=== PATIENT | female | born 1965 | race African-American/Black ===

== ENCOUNTER 2018-12-17 19:32 | Emergency (ER) | payer MEDICAID, OTHER ==
[~2018-12-17] VITALS: Ht 152.4 cm; Wt 75.0 kg
[~2018-12-17 19:32] MED LIST: ASPI-986; TRAMADOL
[2018-12-17] MEDS ORDERED: SODIUM CHLORIDE 0.9% 1,000 ML IV ONE (20:04)
[2018-12-17] MEDS ORDERED: DIPHENHYDRAMINE 50MG/ML VIAL IV ONE (20:15)
[2018-12-17] MEDS ORDERED: FAMOTIDINE 20MG/2ML VIAL IV ONE (20:15)
[2018-12-17] MEDS ORDERED: METHYLPREDNISOLONE SOD SUCC 125 MG/2 ML VIAL IV ONE (20:15)
[2018-12-17 20:50] LABS: BASOPHILS % 0.2 % (0.0-2.0); CHLORIDE 105 mEq/L (98-107); EOSINOPHILS % 0.4 % (0.0-5.0); HEMATOCRIT. 32.5 % (36.0-48.0); HEMOGLOBIN. 10.5 g/dL (12.0-16.0); LYMPHOCYTES % 40.1 % (20.0-50.0); MEAN CORPUSCULAR HEMOGLOBIN 26.7 pg (28.0-32.0); MEAN CORPUSCULAR VOLUME 82.7 fL (81.0-99.0); MEAN PLATELET VOLUME 8.8 fl (7.4-10.4); MONOCYTES % 4.3 % (2.0-8.0); PLATELET 182 x1000/uL (130-400); RED BLOOD CELL COUNT 3.93 mill/uL (4.2-5.4); RED CELL DISTRIBUTION WIDTH 15.2 % (11.6-14.6)
[2018-12-17 20:55] LABS: CLARITY URINE CLEAR (CLEAR); COLOR URINE YELLOW (YELLOW); KETONES URINE NEGATIVE (NEGATIVE); LEUKOCYTE ESTERASE URINE NEGATIVE (NEGATIVE); NITRITE URINE NEGATIVE (NEGATIVE); OCCULT BLOOD URINE TRACE (NEGATIVE); PROTEIN URINE 2+ (NEGATIVE); SPECIFIC GRAVITY URINE 1.022 (1.005-1.030); UROBILINOGEN URINE 0.2 E.U./dL (0.2-1.0)
[2018-12-17 23:31] VITALS: BP 149/89
== END 2018-12-17 23:34 | disposition home or self-care (01) ==
LOC: ER 19:40
DX: T78.3XXA Angioneurotic edema, initial encounter (principal); I10 Essential (primary) hypertension; X58.XXXA Exposure to other specified factors, initial encounter; Z90.89 Acquired absence of other organs; Z79.82 Long term (current) use of aspirin
CPT/HCPCS: 36415; 80053; 81003; 81025; 85025; 93005; 96374; 96375; 99284; J1200; J2930; J3490; J7030

== ENCOUNTER 2020-02-05 15:02 | Emergency (ER) | payer MEDICAID ==
[~2020-02-05] VITALS: Ht 152.4 cm; Wt 66.0 kg
[~2020-02-05 15:02] MED LIST changes: +AMLO10TA80 PO; -ASPI-986; +FOLI0.8C PO; +HYDR200T80 PO; +METH2.5T PO; +PRED5TAB48 PO; -TRAMADOL
[2020-02-05] MEDS ORDERED: MORPHINE SULFATE 4 MG/ML CPJ (NOT FOR IM USE) IV STA (15:37)
[2020-02-05] MEDS ORDERED: ONDANSETRON HCL 4MG/2ML INJ IV STA (15:37)
[2020-02-05] MEDS ORDERED: NITROGLYCERIN OINT 1GM/INCH UDPKT TD ONE (15:45)
[2020-02-05] MEDS ORDERED: ASPIRIN 81MG TABLET PO ONE (15:45)
[2020-02-05] MEDS ORDERED: SODIUM CHLORIDE 0.9% 1,000 ML IV ONE ×2 (16:08→18:39)
[2020-02-05 16:19] LABS: BASOPHILS % 0.4 % (0.0-2.0); HEMATOCRIT. 27.6 % (36.0-48.0); HEMOGLOBIN. 9.3 g/dL (12.0-16.0); LYMPHOCYTES % 20.3 % (20.0-50.0); MEAN CORPUSCULAR HEMOGLOBIN 27.2 pg (28.0-32.0); MEAN CORPUSCULAR VOLUME 80.5 fL (81.0-99.0); MEAN PLATELET VOLUME 8.5 fl (7.4-10.4); MONOCYTES % 8.8 % (2.0-8.0); NEUTROPHILS % 70.5 % (40.0-76.0); PLATELET 323 x1000/uL (130-400); RED BLOOD CELL COUNT 3.44 mill/uL (4.2-5.4)
[2020-02-05 16:24] LABS: CHLORIDE 104 mEq/L (98-107)
[2020-02-05 16:28] LABS: ETHANOL BLOOD < 10 mg/dL
[2020-02-05] MEDS ORDERED: IOHEXOL-350 100 ML BOTTLE ONE (19:48)
[2020-02-06] MEDS ORDERED: MORPHINE SULFATE 2 MG/ML CPJ (NOT FOR IM USE) IV PRN (00:15)
[2020-02-06] MEDS ORDERED: IPRATROPIUM/ALBUTEROL 0.5-3(2.5)MG/3ML NEB HHN PRN (00:15)
[2020-02-06] MEDS ORDERED: ENOXAPARIN 40MG/0.4ML SYR SUBCUT SCH (00:15)
[2020-02-06] MEDS ORDERED: CLONIDINE 0.1MG TABLET PO PRN (00:15)
[2020-02-06] MEDS ORDERED: HYDROCODONE/ACETAMINOPHEN 10/325MG TABLET PO PRN (00:15)
[2020-02-06] MEDS ORDERED: MAGNESIUM/ALUMINUM HYDROXIDE/SIMETHICONE 30ML UDC PO PRN (00:15)
[2020-02-06] MEDS ORDERED: ONDANSETRON HCL 4MG/2ML INJ IV PRN (00:15)
[2020-02-06] MEDS ORDERED: GUAIFENESIN 200MG/10ML SUGAR FREE UDC PO PRN (00:15)
[2020-02-06] MEDS ORDERED: LORAZEPAM 2MG/ML CPJ IV PRN (00:15)
[2020-02-06] MEDS ORDERED: NA PHOS,M-B/NA PHOS,DI-BA ENEMA 118ML PR PRN (00:15)
[2020-02-06] MEDS ORDERED: DOCUSATE SODIUM 100MG CAPSULE PO PRN (00:15)
[2020-02-06] MEDS ORDERED: GABAPENTIN 100MG CAPSULE PO NR (00:30)
[2020-02-06] MEDS ORDERED: PREDNISONE 5MG TABLET PO SCH ×2 (00:45→09:00)
[2020-02-06] MEDS: ACETAMINOPHEN 325MG TABLET PO PRN ×2 (03:10→06:59)
[2020-02-06 05:02] LABS: CHLORIDE 107 mEq/L (98-107)
[2020-02-06] MEDS ORDERED: ASPIRIN 81MG EC TABLET PO SCH (09:00)
[2020-02-06 09:39] VITALS: BP 92/60
[2020-02-06] MEDS ORDERED: GABAPENTIN 100MG CAPSULE PO SCH (10:00)
== END 2020-02-06 10:02 | disposition left against medical advice (07) ==
LOC: ER 15:02 → EDBEDREQSVC 17:53 → EDBEDREQTM 17:53 → EDBEDREQ 17:53 → CANBEDREQ 02-06 10:01 → ER 02-06 10:02
DX: R07.89 Other chest pain (principal); E86.0 Dehydration; D64.9 Anemia, unspecified; R00.0 Tachycardia, unspecified; K21.9 Gastro-esophageal reflux disease without esophagitis; I10 Essential (primary) hypertension; M32.9 Systemic lupus erythematosus, unspecified; G61.81 Chronic inflammatory demyelinating polyneuritis; Z98.51 Tubal ligation status
CPT/HCPCS: 36415; 71045; 71275; 80048; 80053; 80320; 83690; 83880; 84443; 84484; 85025; 85379; 93005; 93970; 96374; 96375; 99291; J2270; J2405; J7030; J7512; Q9967; Z7610; G0480

== ENCOUNTER 2020-06-25 11:19 | Inpatient (IN) | payer MEDICAID ==
[~2020-06-25] VITALS: Ht 152.4 cm; Wt 49.4 kg
[2020-06-25] MEDS ORDERED: SODIUM CHLORIDE 0.9% 1,000 ML IV ONE (11:55)
[2020-06-25 12:20] LABS: BASOPHILS % 0.9 % (0.0-2.0); EOSINOPHILS % 0.2 % (0.0-5.0); HEMATOCRIT. 24.3 % (36.0-48.0); HEMOGLOBIN. 7.9 g/dL (12.0-16.0); LYMPHOCYTES % 37.9 % (20.0-50.0); MEAN CORPUSCULAR HEMOGLOBIN 26.9 pg (28.0-32.0); MEAN CORPUSCULAR VOLUME 82.9 fL (81.0-99.0); MONOCYTES % 11.9 % (2.0-8.0); NEUTROPHILS % 49.1 % (40.0-76.0); RED BLOOD CELL COUNT 2.93 mill/uL (4.2-5.4); RED CELL DISTRIBUTION WIDTH 20.1 % (11.6-14.6)
[2020-06-25 12:24] LABS: CHLORIDE 106 mEq/L (98-107)
[2020-06-25] MEDS ORDERED: AZITHROMYCIN 500 MG in DEXT 5% WATER 250 ML IV ONE (13:30)
[2020-06-25] MEDS ORDERED: PANTOPRAZOLE SODIUM 40 MG/VIAL IV ONE (13:30)
[2020-06-25] MEDS ORDERED: CEFTRIAXONE 1 G PREMIX 50 ML IV ONE (13:30)
[2020-06-25 13:43] LABS: INR 0.9; PROTHROMBIN TIME 9.9 sec (9.6-11.0)
[2020-06-25] MEDS ORDERED: HYDRALAZINE 20MG/ML VIAL IV PRN (16:45)
[2020-06-25] MEDS ORDERED: SODIUM CHLORIDE 0.9% 1,000 ML IV SCH (18:01)
[2020-06-25] MEDS ORDERED: IPRATROPIUM/ALBUTEROL 0.5-3(2.5)MG/3ML NEB HHN PRN (18:15)
[2020-06-25] MEDS ORDERED: HYDROCODONE/ACETAMINOPHEN 5/325MG TABLET PO PRN (18:15)
[2020-06-25] MEDS ORDERED: LORAZEPAM 0.5MG TABLET PO PRN (18:15)
[2020-06-25] MEDS ORDERED: CLONIDINE 0.1MG TABLET PO PRN (18:15)
[2020-06-25] MEDS ORDERED: ONDANSETRON HCL 4MG/2ML INJ IV PRN (18:15)
[2020-06-25] MEDS ORDERED: DOCUSATE SODIUM 100MG CAPSULE PO PRN (18:15)
[2020-06-25] MEDS ORDERED: ACETAMINOPHEN 325MG TABLET PO PRN ×2 (18:15)
[2020-06-25 21:30] VITALS: BP 163/102
[2020-06-26] VITALS: BP_SYST 148; BP_SYST 163; BP_DIAS 102; BP_DIAS 89
[2020-06-26] MEDS ORDERED: THIA50TA10 PO (00:02)
[2020-06-26] MEDS ORDERED: CHOL100034 (00:05)
[2020-06-26] MEDS ORDERED: FOLI0.8C PO (00:18)
[2020-06-26] MEDS ORDERED: PRED5TAB48 PO (00:19)
[2020-06-26] MEDS ORDERED: TOPUD PO (00:20)
[2020-06-26] MEDS ORDERED: LISI10TA5 MT (00:21)
[2020-06-26] MEDS ORDERED: FERR325T30 PO (00:22)
[2020-06-26 04:00] VITALS: BP 106/63
== END 2020-06-26 07:40 | disposition left against medical advice (07) | DRG 253 ==
LOC: ER 11:19 → EDBEDREQ 16:07 → ENRESERV 20:03 → 6WST 21:28
PROVIDERS: ADMIT Internal Medicine; ATTEND Internal Medicine
DX: K92.2 Gastrointestinal hemorrhage, unspecified (principal); E43 Unspecified severe protein-calorie malnutrition; I10 Essential (primary) hypertension; Z53.29 Procedure and treatment not carried out because of patient's decision for other reasons; Z79.899 Other long term (current) drug therapy; Z98.51 Tubal ligation status
CPT/HCPCS: 36415; 71045; 74176; 80053; 85025; 86850; 86900; 93005; 96365; 99285; C9113; J0360; J0456; J0696; J7030; J7060

== ENCOUNTER 2024-12-21 10:04 | Emergency (ER) | payer MEDICAID, OTHER ==
[~2024-12-21] VITALS: Ht 152.4 cm; Wt 57.6 kg
[~2024-12-21 10:04] MED LIST changes: -AMLO10TA80 PO; +CHOL100034; +FERR325T30 PO; +LISI10TA26 MT; -METH2.5T PO; +THIA50TA10 PO; +TOPUD PO
[2024-12-21 10:08] VITALS: BP 163/98; RESP 16; TEMP 98.6; O2SAT 100
[2024-12-21 10:13] VITALS: PULSE 112; O2SAT 96
[2024-12-21 10:56] LABS: BASOPHILS % 0.6 % (0.0-2.0); EOSINOPHILS % 1.3 % (0.0-5.0); HEMATOCRIT. 26.5 % (36.0-48.0); HEMOGLOBIN. 8.7 g/dL (12.0-16.0); LYMPHOCYTES % 32.2 % (20.0-50.0); MEAN CORPUSCULAR HEMOGLOBIN 28.6 pg (28.0-32.0); MEAN CORPUSCULAR HGB CONC 32.7 g/dL (31.0-37.0); MEAN CORPUSCULAR VOLUME 87.5 fL (81.0-99.0); MEAN PLATELET VOLUME 8.8 fl (7.4-10.4); MONOCYTES % 7.5 % (2.0-8.0); NEUTROPHILS % 58.4 % (40.0-76.0); PLATELET 171 x1000/uL (130-400); RED BLOOD CELL COUNT 3.03 mill/uL (4.2-5.4); RED CELL DISTRIBUTION WIDTH 14.5 % (11.6-14.6); WHITE BLOOD COUNT 4.9 x1000/uL (4.5-11.0)
[2024-12-21 11:10] LABS: CHLORIDE 112 mEq/L (98-107); POTASSIUM 3.3 mEq/L (3.5-5.1); SODIUM 140 mEq/L (136-145)
[2024-12-21 11:11] LABS: CARBON DIOXIDE 19 mEq/L (21-32)
[2024-12-21 11:12] LABS: CALCIUM 8.5 mg/dL (8.7-10.4)
[2024-12-21 11:16] LABS: CREATININE 1.6 mg/dL (0.6-1.0); GLUCOSE 84 mg/dL (70-105); UREA NITROGEN BLOOD 34 mg/dL (9-23)
[2024-12-21 11:17] LABS: TROPONIN I HIGH SENSITIVITY 30 ng/L (3.0-34)
[2024-12-21 11:24] LABS: CLARITY URINE CLEAR (CLEAR); COLOR URINE YELLOW (YELLOW); GLUCOSE URINE NEGATIVE (NEGATIVE); KETONES URINE NEGATIVE (NEGATIVE); LEUKOCYTE ESTERASE URINE NEGATIVE (NEGATIVE); NITRITE URINE NEGATIVE (NEGATIVE); OCCULT BLOOD URINE 1+ (NEGATIVE); PROTEIN URINE 4+ (NEGATIVE); SPECIFIC GRAVITY URINE 1.014 (1.005-1.030); UROBILINOGEN URINE 0.2 E.U./dL (0.2-1.0)
[2024-12-21 11:49] LABS: RBC URINE 0-2 /hpf (0-2); SQUAMOUS EPITHELIAL CELL URINE 1+ /lpf (RARE/1+)
[2024-12-21 11:50] LABS: BACTERIA URINE NONE SEEN
[2024-12-21] MEDS ORDERED: CEFTRIAXONE 1GM/50ML 50 ML IV ONE (13:30)
[2024-12-21] MEDS ORDERED: IPRATROPIUM/ALBUTEROL 0.5-3(2.5)MG/3ML NEB NEB PRN (18:00)
[2024-12-21] MEDS ORDERED: ACETAMINOPHEN 325MG TABLET PO PRN (18:00)
[2024-12-21] MEDS ORDERED: ONDANSETRON HCL 4MG/2ML INJ IV PRN (18:00)
[2024-12-21] MEDS ORDERED: ENOXAPARIN 40MG/0.4ML SYR SUBCUT SCH (18:00)
[2024-12-21] MEDS ORDERED: HYDROCODONE/ACETAMINOPHEN 5/325MG TABLET PO PRN (18:00)
[2024-12-21] MEDS ORDERED: CLONIDINE 0.1MG TABLET PO PRN (18:00)
[2024-12-21] MEDS ORDERED: NALOXONE HCL 0.4MG/ML VIAL IV PRN (18:15)
[2024-12-21] MEDS ORDERED: ENOXAPARIN 30MG/0.3ML SYR SUBCUT SCH (18:30)
[2024-12-21] MEDS ORDERED: FUROSEMIDE 40MG/4ML VIAL IVP SCH (18:30)
[2024-12-21] MEDS ORDERED: PANTOPRAZOLE SODIUM 40 MG/VIAL IV SCH (18:30)
[2024-12-21] MEDS ORDERED: ZOLPIDEM TARTRATE 5MG TABLET PO PRN (21:00)
== END 2024-12-21 16:30 | disposition left against medical advice (07) ==
LOC: ER 10:23 → EDBEDREQ 12:04 → ER 16:30
DX: I50.9 Heart failure, unspecified (principal); I25.2 Old myocardial infarction; Z79.899 Other long term (current) drug therapy; Z90.89 Acquired absence of other organs; Z98.51 Tubal ligation status; Z99.2 Dependence on renal dialysis; Z98.890 Other specified postprocedural states
CPT/HCPCS: 36415; 71045; 80048; 81003; 81025; 83880; 84484; 85025; 93005; 99285

== ENCOUNTER 2025-08-16 16:24 | Emergency (ER) | payer OTHER ==
[~2025-08-16] VITALS: Ht 152.4 cm; Wt 59.0 kg
[~2025-08-16 16:24] MED LIST changes: +CLON-493 PO; +FURO-151 PO; +HYDR100T11 PO; +LABE100T9 MT; -LISI10TA26 MT; +LOSA50TA41 MT; +NIFE-33 MT
[2025-08-16 16:27] VITALS: O2SAT 98
[2025-08-16 17:37] VITALS: BP 198/98; PULSE 93; RESP 16; TEMP 36.9; O2SAT 100
[2025-08-16 19:35] LABS: BASOPHILS % 1.0 % (0.0-2.0); EOSINOPHILS % 3.7 % (0.0-5.0); HEMATOCRIT. 23.4 % (36.0-48.0); HEMOGLOBIN. 7.4 g/dL (12.0-16.0); LYMPHOCYTES % 24.5 % (20.0-50.0); MEAN PLATELET VOLUME 8.5 fl (7.4-10.4); MONOCYTES % 13.6 % (2.0-8.0); NEUTROPHILS % 57.2 % (40.0-76.0); PLATELET 166 x1000/uL (130-400); RED BLOOD CELL COUNT 2.60 mill/uL (4.2-5.4); RED CELL DISTRIBUTION WIDTH 16.2 % (11.6-14.6)
[2025-08-16 19:49] LABS: UREA NITROGEN BLOOD 24.0 mg/dL (9-23)
[2025-08-16 20:17] LABS: CREATININE 3.9 mg/dL (0.6-1.0)
[2025-08-16] MEDS: KETOROLAC 30MG/ML VIAL IM ONE (21:11)
[2025-08-16] MEDS: METHOCARBAMOL 750MG TABLET PO SCH (21:11)
[2025-08-16] MEDS ORDERED: METH-653 MT (22:02)
[2025-08-16] MEDS ORDERED: LIDO-53 TP (22:02)
[2025-08-16] MEDS ORDERED: TOPUD PO (22:02)
== END 2025-08-16 22:18 | disposition home or self-care (01) ==
LOC: ER 16:24
DX: S39.012A Strain of muscle, fascia and tendon of lower back, initial encounter (principal); S13.4XXA Sprain of ligaments of cervical spine, initial encounter; N18.6 End stage renal disease; Z91.013 Allergy to seafood; Z79.899 Other long term (current) drug therapy; V89.2XXA Person injured in unspecified motor-vehicle accident, traffic, initial encounter; Y93.89 Activity, other specified; Y92.410 Unspecified street and highway as the place of occurrence of the external cause; Y99.8 Other external cause status
CPT/HCPCS: 99284; 71045; 80048; 85025; 36415; 72040; 72100; 96372; J1885